=== PATIENT | male | born 1955 | race Caucasian/White ===

== ENCOUNTER 2024-06-24 08:31 | Day surgery (SDC) | payer MEDICARE ==
[~2024-06-24] VITALS: Ht 177.8 cm; Wt 91.6 kg
[~2024-06-24 08:31] MED LIST: AMLO1TAB24 PO; ATOR40TA75 PO; CHLO50TA PO; CYCLOPENTOLATE 1% OPHTH SOLN 2ML BTL OD SCH; ECOT81TA5 PO; GABA-1635 PO; LIDOCAINE 3.5 % 1ML OPHTH TOPICAL GEL OU ONE; METO200T15 PO; OFLOXACIN 0.3 % (OCUFLOX) OPTH SOL 5ML OD ONE; PHENYLEPHRINE 10% OPHTH SOL 5ML OD PRN; PHENYLEPHRINE 2.5% OPHTH SOL 2ML OD SCH; POLY510P14 PO; POTA-150 PO; POTA-151 PO; TAMS1CAP17 PO; TROPICAMIDE 1% OPHTH SOLN 15ML OD SCH
[2024-06-24] MEDS ORDERED: fentaNYL 100 MCG/2 ML INJECTION As Ordered ONE (09:23)
[2024-06-24] MEDS ORDERED: MIDAZOLAM INJ 2MG/2ML VIAL As Ordered ONE (09:23)
[2024-06-24] MEDS: OFLOXACIN 0.3 % (OCUFLOX) OPTH SOL 5ML OD ONE (09:57)
[2024-06-24] MEDS: LIDOCAINE 3.5 % 1ML OPHTH TOPICAL GEL OU ONE (09:58)
[2024-06-24] MEDS: PHENYLEPHRINE 2.5% OPHTH SOL 2ML OD SCH (09:58)
[2024-06-24] MEDS: CYCLOPENTOLATE 1% OPHTH SOLN 2ML BTL OD SCH (09:58)
[2024-06-24] MEDS: TROPICAMIDE 1% OPHTH SOLN 15ML OD SCH (09:58)
[2024-06-24] MEDS: LIDOCAINE 1% SDV 5ML VIAL As Ordered ONE (11:10)
[2024-06-24] MEDS: CEFUROXIME 1MG/0.1ML INTRACAMERAL INJ As Ordered ONE (11:10)
[2024-06-24] MEDS: BSS IRRIG/VANCO(10MG)/TOBRA(5MG)/EPINEPH(1:1000-0.5CC)500ML BAG-ORONLY As Ordered ONE (11:10)
[2024-06-24 11:25] VITALS: BP 137/88; TEMP 97; O2SAT 96
== END 2024-06-24 11:45 | disposition home or self-care (01) ==
LOC: M SDC 08:31
PROVIDERS: ATTEND Ophthalmology
DX: H25.9 Unspecified age-related cataract (principal); I48.91 Unspecified atrial fibrillation; I25.10 Atherosclerotic heart disease of native coronary artery without angina pectoris; G47.30 Sleep apnea, unspecified; Z95.0 Presence of cardiac pacemaker; Z79.899 Other long term (current) drug therapy; Z87.891 Personal history of nicotine dependence
CPT/HCPCS: 66984; 92015; J0697; J2250; J3010; V2788

== ENCOUNTER 2024-07-01 08:34 | Day surgery (SDC) | payer MEDICARE ==
[~2024-07-01] VITALS: Ht 177.8 cm; Wt 93.4 kg
[~2024-07-01 08:34] MED LIST changes: -CYCLOPENTOLATE 1% OPHTH SOLN 2ML BTL OD SCH; -LIDOCAINE 3.5 % 1ML OPHTH TOPICAL GEL OU ONE; +MIDAZOLAM INJ 2MG/2ML VIAL As Ordered ONE; -OFLOXACIN 0.3 % (OCUFLOX) OPTH SOL 5ML OD ONE; -PHENYLEPHRINE 10% OPHTH SOL 5ML OD PRN; +PHENYLEPHRINE 10% OPHTH SOL 5ML OS PRN; -PHENYLEPHRINE 2.5% OPHTH SOL 2ML OD SCH; -TROPICAMIDE 1% OPHTH SOLN 15ML OD SCH
[2024-07-01] MEDS: TROPICAMIDE 1% OPHTH SOLN 15ML OS SCH (08:52)
[2024-07-01] MEDS: CYCLOPENTOLATE 1% OPHTH SOLN 2ML BTL OS SCH (08:52)
[2024-07-01] MEDS: OFLOXACIN 0.3 % (OCUFLOX) OPTH SOL 5ML OS ONE (08:52)
[2024-07-01] MEDS: LIDOCAINE 3.5 % 1ML OPHTH TOPICAL GEL OU ONE (08:52)
[2024-07-01] MEDS: PHENYLEPHRINE 2.5% OPHTH SOL 2ML OS SCH (08:52)
[2024-07-01] MEDS: LIDOCAINE 1% SDV 5ML VIAL As Ordered ONE (09:45)
[2024-07-01] MEDS: BSS IRRIG/VANCO(10MG)/TOBRA(5MG)/EPINEPH(1:1000-0.5CC)500ML BAG-ORONLY As Ordered ONE (09:45)
[2024-07-01] MEDS: CEFUROXIME 1MG/0.1ML INTRACAMERAL INJ As Ordered ONE (09:56)
[2024-07-01 10:12] VITALS: BP 112/82; TEMP 97.2; O2SAT 95
== END 2024-07-01 10:21 | disposition home or self-care (01) ==
LOC: M SDC 08:34
PROVIDERS: ATTEND Ophthalmology
DX: H25.9 Unspecified age-related cataract (principal); H57.03 Miosis; I48.91 Unspecified atrial fibrillation; I25.10 Atherosclerotic heart disease of native coronary artery without angina pectoris; G47.30 Sleep apnea, unspecified; Z95.0 Presence of cardiac pacemaker; Z79.899 Other long term (current) drug therapy
CPT/HCPCS: 66982; 92015; J0697; J2250; V2788